=== PATIENT | male | born 1950 | race Caucasian/White ===

== ENCOUNTER 2019-06-05 19:22 | Emergency (ER) | payer SELFPAY ==
[~2019-06-05] VITALS: Ht 175.3 cm; Wt 86.2 kg
--- NOTE | 2019-06-05 19:25 | NUR ---
ED Nurse Note: Patient biba RA 62 from [facility], patient states that he was walking, and started experiencinng left sided chest pain 4/10 pain radiating to his left arm. patient was given 2 nitro and 162 aspirin via EMS. Pt is AO x 4times, VSS, on room air no distress. PHUD seen Pt at bedside.
--- NOTE | 2019-06-05 19:46 | Emergency Room Report ---
History of Present Illness General Chief Complaint: Chest Pain Source: Patient Present Illness HPI Is a 68-year-old male who presented after increased chest discomfort. Patient reports having onset of symptoms while attempting to run toward a bus. He states that he had onset of symptoms earlier in the day as well. He denies any prior medical history. He states that he had some relief after second nitroglycerin. Patient had onset of symptoms intermittently in nature.Patient states that he runs approximately 5 miles per day. He states he had some chest discomfort after running early in the day. Allergies: Coded Allergies: No Known Allergies (Unverified , 06/05/19) Patient History Past Medical History: see triage record Reviewed Nursing Documentation: PMH: Agreed; PSxH: Agreed Nursing Documentation-PMH Past Medical History: No Stated History Review of Systems All Other Systems: negative except mentioned in HPI Physical Exam Vital Signs Date Time Temp Pulse Resp B/P (MAP) Pulse Ox O2 Delivery O2 Flow Rate FiO2 06/05/19 19:18 98.2 79 18 120/74 (89) 95 Room Air Sp02 EP Interpretation: reviewed, normal General Appearance: normal inspection, well appearing, no apparent distress, alert, GCS 15, obese Head: atraumatic ENT: normal ENT inspection, hearing grossly normal, normal voice, other - poor dentition Neck: normal inspection, full range of motion, supple, no bony tend Respiratory: normal inspection, lungs clear, normal breath sounds, no respiratory distress, no retraction, no wheezing Cardiovascular #1: regular rate, rhythm, no edema Gastrointestinal: normal inspection, normal bowel sounds, non tender, soft, no guarding, no hernia Genitourinary: no CVA tenderness Musculoskeletal: normal inspection, back normal, normal range of motion Neurologic: normal inspection, alert, oriented x3, responsive, biologist III-XII nml as tested, speech normal Psychiatric: normal inspection, judgement/insight normal, mood/affect normal Medical Decision Making Diagnostic Impression: Primary Impression: Chest pain Additional Impression: Dehydration ER Course Patient presented for chest pain. Differential diagnosis include was not limited to anemia, pneumonia, pneumothorax, myocardial infarction, among others. Because of complexity of patient's case laboratory testing and imaging studies were ordered. Patient was noted to have unremarkable EKG. patient's laboratory testing was unremarkable except for some elevation of his BUN/ creatinine because with dehydration. Troponin was noted to be negative. Patient was noted to be in no acute distress and have no significant evidence of acute coronary syndrome at this time. Patient was noted to have EKG leads likely from prior hospitalization which were present prior to EMS arrival. Patient's noted to have some significant number of shopping bags with him. Patient was noted to have no significant abnormalities on chest x-ray. Patient will be discharged home. Patient advised outpatient cardiology follow-up. Patient was advised to return if worse. Labs Test 06/05/19 19:30 06/05/19 19:50 06/05/19 21:15 Sodium Level 140 MMOL/L (136-145) Potassium Level 4.3 MMOL/L (3.5-5.1) Chloride Level 107 MMOL/L (98-107) Carbon Dioxide Level 22 MMOL/L (21-32) Anion Gap 11 mmol/L (5-15) Blood Urea Nitrogen 23 mg/dL (7-18) Creatinine 1.2 MG/DL (0.55-1.30) Estimat Glomerular Filtration Rate > 60 mL/min (>60) Glucose Level 112 MG/DL (74-106) Calcium Level 8.9 MG/DL (8.5-10.1) Total Bilirubin 0.3 MG/DL (0.2-1.0) Aspartate Amino Transf (AST/SGOT) 30 U/L (15-37) Alanine Aminotransferase (ALT/SGPT) 16 U/L (12-78) Alkaline Phosphatase 80 U/L (46-116) Total Creatine Kinase 370 U/L (26-308) Creatine Kinase MB 2.9 NG/ML (0.0-3.6) Creatine Kinase MB Relative Index 0.7 Troponin I 0.000 ng/mL (0.000-0.056) Pro-B-Type Natriuretic Peptide 45 pg/mL (0-125) Total Protein 7.6 G/DL (6.4-8.2) Albumin 3.6 G/DL (3.4-5.0) Globulin 4.0 g/dL Albumin/Globulin Ratio 0.9 (1.0-2.7) Lipase 156 U/L (73-393) White Blood Count 7.2 K/UL (4.8-10.8) Red Blood Count 3.83 M/UL (4.70-6.10) Hemoglobin 10.8 G/DL (14.2-18.0) Hematocrit 33.1 % (42.0-52.0) Mean Corpuscular Volume 86 FL (80-99) Mean Corpuscular Hemoglobin 28.3 PG (27.0-31.0) Mean Corpuscular Hemoglobin Concent 32.8 G/DL (32.0-36.0) Red Cell Distribution Width 12.1 % (11.6-14.8) Platelet Count 242 K/UL (150-450) Mean Platelet Volume 6.2 FL (6.5-10.1) Neutrophils (%) (Auto) 69.6 % (45.0-75.0) Lymphocytes (%) (Auto) 17.4 % (20.0-45.0) Monocytes (%) (Auto) 8.7 % (1.0-10.0) Eosinophils (%) (Auto) 3.3 % (0.0-3.0) Basophils (%) (Auto) 1.1 % (0.0-2.0) D-Dimer 0.43 mg/L FEU (0.00-0.49) Urine Opiates Screen Negative (NEGATIVE) Urine Barbiturates Screen Negative (NEGATIVE) Phencyclidine (PCP) Screen Negative (NEGATIVE) Urine Amphetamines Screen Negative (NEGATIVE) Urine Benzodiazepines Screen Negative (NEGATIVE) Urine Cocaine Screen Negative (NEGATIVE) Urine Marijuana (THC) Screen Negative (NEGATIVE) EKG Diagnostic Results Rate: normal Rhythm: NSR ST Segments: no acute changes Last Vital Signs Date Time Temp Pulse Resp B/P (MAP) Pulse Ox O2 Delivery O2 Flow Rate FiO2 06/05/19 19:18 98.2 79 18 120/74 (89) 95 Room Air Status: improved Disposition: HOME, SELF-CARE Condition: Stable Scripts Aspirin* (ASPIRIN*) 325 Mg Tablet 325 MG ORAL DAILY, #30 TAB Prov: Satnam Grant MD 06/05/19 Satnam Grant MD Jun 05, 2019 19:46
--- NOTE | 2019-06-05 19:58 | NUR ---
ED Nurse Note: Blood sample sent to lab.
[2019-06-05 20:09] LABS: ANION GAP 11 mmol/L (5-15); BLOOD UREA NITROGEN 23 mg/dL (7-18); CALCIUM 8.9 MG/DL (8.5-10.1); CARBON DIOXIDE 22 MMOL/L (21-32); CHLORIDE 107 MMOL/L (98-107); CREATININE 1.2 MG/DL (0.55-1.30); POTASSIUM 4.3 MMOL/L (3.5-5.1); SODIUM 140 MMOL/L (136-145)
[2019-06-05 20:15] LABS: BASOPHILS % (AUTO) 1.1 % (0.0-2.0); EOSINOPHILS % (AUTO) 3.3 % (0.0-3.0); HEMATOCRIT 33.1 % (42.0-52.0); HEMOGLOBIN 10.8 G/DL (14.2-18.0); LYMPHOCYTES % (AUTO) 17.4 % (20.0-45.0); MEAN CORPUSCULAR VOLUME 86 FL (80-99); MONOCYTES % (AUTO) 8.7 % (1.0-10.0); NEUTROPHILS % (AUTO) 69.6 % (45.0-75.0); PLATELET COUNT 242 K/UL (150-450); RED BLOOD COUNT 3.83 M/UL (4.70-6.10); RED CELL DISTRIBUTION WIDTH 12.1 % (11.6-14.8); WHITE BLOOD COUNT 7.2 K/UL (4.8-10.8)
[2019-06-05 20:26] LABS: ALANINE AMINOTRANSFERASE 16 U/L (12-78); ALBUMIN 3.6 G/DL (3.4-5.0); ALBUMIN/GLOBULIN RATIO 0.9 (1.0-2.7); ALKALINE PHOSPHATASE 80 U/L (46-116); ASPARTATE AMINO TRANSFERASE 30 U/L (15-37); BILIRUBIN,TOTAL 0.3 MG/DL (0.2-1.0); CKMB 2.9 NG/ML (0.0-3.6); CREATINE KINASE 370 U/L (26-308)
[2019-06-05 21:03] VITALS: BP 123/82
--- NOTE | 2019-06-05 21:09 | NUR ---
ED Nurse Note: Urine sample sent to lab.
--- NOTE | 2019-06-05 21:10 | NUR ---
ED Nurse Note: Pt provide physical address, route out homeless. [address] [facility], [id number]
[2019-06-05] MEDS ORDERED: ASPIRIN325 MG ORAL (21:48)
[2019-06-05 22:28] VITALS: BP 119/83
--- NOTE | 2019-06-05 22:29 | NUR ---
ER DISCHARGE NOTE: Patient is cleared to be discharged per ERMD, pt is aox4, on room air, with stable vital signs. pt was given dc and prescription instructions, pt was able to verbalize understanding, pt id band and iv site removed without complications. pt is able to ambulate with steady gait. pt took all belongings.
[2019-06-05 22:30] VITALS: BP 119/83
--- NOTE | 2019-06-06 09:21 | Diagnostic Imaging Report ---
Indication: Shortness of breath Technique: One view of the chest Comparison: none Findings: Inspiration is suboptimal. There is crowding of the bronchovascular markings. Lungs and pleural spaces are otherwise clear. The heart size is upper limits normal. The aorta is tortuous Impression: No acute process
== END 2019-06-06 00:10 | disposition home or self-care (01) ==
LOC: EDBD 19:22 → EMR 19:56
DX: R07.89 Other chest pain (principal); E86.0 Dehydration
CPT/HCPCS: 36415; 71045; 80053; 80307; 82550; 82553; 83690; 83880; 84484; 85025; 85379; 93005; 99284